=== PATIENT | male | born 1970 | race Caucasian/White ===

== ENCOUNTER 2019-02-20 21:20 | Emergency (ER) | payer SELFPAY ==
[~2019-02-20] VITALS: Ht 185 cm; Wt 100.0 kg
[~2019-02-20 21:20] MED LIST: DYAZIDE
[2019-02-20] MEDS ORDERED: diphenhydrAMINE 50 MG/ML INJ (BENADRYL) IVP ONE (21:45)
[2019-02-20] MEDS ORDERED: FAMOTIDINE 20MG/2ML IV (PEPCID) IVP ONE (21:45)
[2019-02-20] MEDS ORDERED: methylPREDNISolone 125 MG (Solu-MEDROL) VIAL IVP ONE (21:45)
[2019-02-20 21:57] LABS: BASOPHILS % (AUTO) 0 % (0-10); EOSINOPHILS # (AUTO) 0.1 10^3/uL (0.0-0.3); EOSINOPHILS % (AUTO) 1 % (0-10); HEMATOCRIT 45 % (40-54); HEMOGLOBIN 15.8 G/DL (13.3-17.7); LYMPHOCYTES # (AUTO) 3.8 X 10^3 (1.0-4.0); LYMPHOCYTES % (AUTO) 44 % (12-44); MEAN CORPUSCULAR HEMOGLOBIN 30 PG (25-34); MEAN CORPUSCULAR HGB CONC 35 G/DL (32-36); MEAN CORPUSCULAR VOLUME 84 FL (80-99); MEAN PLATELET VOLUME 10.5 FL (7.4-10.4); MONOCYTES # (AUTO) 0.6 X 10^3 (0.0-1.0); MONOCYTES % (AUTO) 7 % (0-12); NEUTROPHILS # (AUTO) 4.1 X 10^3 (1.8-7.8); NEUTROPHILS % (AUTO) 48 % (42-75); PLATELET COUNT 202 10^3/uL (130-400); RED CELL DISTRIBUTION WIDTH 12.8 % (10.0-14.5); WHITE BLOOD COUNT 8.6 10^3/uL (4.3-11.0)
[2019-02-20 22:10] LABS: ALANINE AMINOTRANSFERASE 37 U/L (0-55); ALBUMIN 4.5 GM/DL (3.2-4.5); ALKALINE PHOSPHATASE 99 U/L (40-136); BILIRUBIN,TOTAL 0.4 MG/DL (0.1-1.0); BUN/CREATININE RATIO 17; CALCIUM 9.8 MG/DL (8.5-10.1); CARBON DIOXIDE 21 MMOL/L (21-32); CHLORIDE 108 MMOL/L (98-107); CREATININE SERUM 1.06 MG/DL (0.60-1.30); GFR ESTIMATED > 60; GLUCOSE 123 MG/DL (70-105); POTASSIUM 3.9 MMOL/L (3.6-5.0); SODIUM 141 MMOL/L (135-145); TOTAL PROTEIN 8.1 GM/DL (6.4-8.2)
--- NOTE | 2019-02-20 22:30 | ED Integumentary General ---
General Chief Complaint: Allergic Reaction Stated Complaint: RASH Source: patient History of Present Illness Date Seen by Provider: Feb 20, 2019 Time Seen by Provider: 21:33 Initial Comments PT ARRIVES VIA POV FROM HOME PT STATES HE WAS GETTING READY THIS AM, HE BEGAN TO HAVE RASH AND ITCHING IN HIS ARMPITS TOOK BENADRYL AND IT GOT BETTER, THEN LATER THE RASH RETURNED AND NOW IS ALL OVER HIS BODY, TOOK ANOTHER BENADRYL--NO IMPROVEMENT PALMS VERY ITCHY, FACE AND SCALP ARE INVOLVED. TOPS OF FEET, BUT NOT SOLES ARE INVOLVED. NO SWELLING ANYWHERE NO DIFFICULTY SWALLOWING OR BREATHING NO PALPITATIONS OR DIZZINESS NO CHEST PAIN OR SHORTNESS OF BREATH NO HISTORY OF SIMILAR PT DOES NOT TAKE ANY MEDICATIONS OR SUPPLEMENTS PT DENIES ANY NEW FOODS, PRODUCTS, OR EXPOSURES. PT DID GO TO FOOTBALL GAME YESTERDAY BUT ONLY ATE POPCORN AND DRANK BOTTLED WATER. PT STATES HE WAS FINE WHEN HE WENT TO BED, AND ALSO WHEN HE FIRST WOKE UP. DID NOT NOTICE RASH OR HAVE ANY ITCHING UNTIL A LITTLE LATER, HE WAS GETTING READY TO GO TO [place]. PCP: NONE Allergies and Home Medications Allergies Coded Allergies: No Known Drug Allergies (Unverified , 02/20/19) Home Medications Prednisone 20 Mg Tab, 40 MG PO DAILY Prescribed by: JAVIER MENDOZA on 02/20/19 5956 Patient Home Medication List Home Medication List Reviewed: Yes Review of Systems Review of Systems Constitutional: no symptoms reported; No diaphoresis, No dizziness EENTM: no symptoms reported; No mouth swelling, No nose congestion, No throat swelling Respiratory: no symptoms reported; No cough, No short of breath, No stridor, No wheezing Cardiovascular: no symptoms reported; No chest pain, No edema, No palpitations, No syncope Gastrointestinal: no symptoms reported; No nausea, No vomiting Genitourinary: no symptoms reported Musculoskeletal: no symptoms reported Skin: see HPI, pruritus, rash Psychiatric/Neurological: No Symptoms Reported Endocrine: No Symptoms Reported Hematologic/Lymphatic: No Symptoms Reported Past Kntebfv-Ayuhxo-Qgarcm Hx Patient Social History Alcohol Use: Denies Use Recreational Drug Use: No Smoking Status: Never a Smoker 2nd Hand Smoke Exposure: No Recent Foreign Travel: No Contact w/Someone Who Travel: No Recent Infectious Disease Expo: No Recent Hopitalizations: Yes (2006) Seasonal Allergies Seasonal Allergies: Yes Past Medical History Surgeries: Yes (BILATERAL KNEE SCOPES) Orthopedic Respiratory: No Cardiac: No Neurological: No Reproductive Disorders: No Genitourinary: Yes (KINCEY STONES--NO SURGERY/PASSED ON OWN) Kidney Stones Gastrointestinal: No Musculoskeletal: Yes (BILATERAL KNEE SCOPES) Endocrine: No HEENT: No Cancer: No Psychosocial: No Integumentary: No Blood Disorders: No Physical Exam Vital Signs Vital Signs - First Documented 02/20/19 21:38 Temp 36.8 Pulse 101 Resp 22 B/P (MAP) 147/102 (117) Pulse Ox 99 O2 Delivery Room Air Capillary Refill : Less Than 3 Seconds General Appearance: WD/WN, no apparent distress, other (ANXIOUS, TREMULOUOS) HEENT: PERRL/EOMI, normal ENT inspection, other (NO SWELLING TO FACE, LIPS, TONGUE OR ORAL MUCOSA) Neck: normal inspection Cardiovascular: regular rate, rhythm, no edema, no murmur Respiratory: normal breath sounds, no respiratory distress, no accessory muscle use Gastrointestinal: soft Extremities: no pedal edema, normal capillary refill 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 ENTIRE FACE IS ERYTHEMATOUS, BUT NO URTICARIA TO FACE. PALMS, SOLES SPARED, MOST OF SCALP IS SPARED. ) Progress/Results/Core Measures Results/Orders Lab Results Laboratory Tests Test 02/20/19 21:45 Range/Units White Blood Count 8.6 4.3-11.0 10^3/uL Red Blood Count 5.34 4.35-5.85 10^6/uL Hemoglobin 15.8 13.3-17.7 G/DL Hematocrit 45 40-54 % Mean Corpuscular Volume 84 80-99 FL Mean Corpuscular Hemoglobin 30 25-34 PG Mean Corpuscular Hemoglobin Concent 35 32-36 G/DL Red Cell Distribution Width 12.8 10.0-14.5 % Platelet Count 202 130-400 10^3/uL Mean Platelet Volume 10.5 H 7.4-10.4 FL Neutrophils (%) (Auto) 48 42-75 % Lymphocytes (%) (Auto) 44 12-44 % Monocytes (%) (Auto) 7 0-12 % Eosinophils (%) (Auto) 1 0-10 % Basophils (%) (Auto) 0 0-10 % Neutrophils # (Auto) 4.1 1.8-7.8 X 10^3 Lymphocytes # (Auto) 3.8 1.0-4.0 X 10^3 Monocytes # (Auto) 0.6 0.0-1.0 X 10^3 Eosinophils # (Auto) 0.1 0.0-0.3 10^3/uL Basophils # (Auto) 0.0 0.0-0.1 10^3/uL Sodium Level 141 135-145 MMOL/L Potassium Level 3.9 3.6-5.0 MMOL/L Chloride Level 108 H 98-107 MMOL/L Carbon Dioxide Level 21 21-32 MMOL/L Anion Gap 12 5-14 MMOL/L Blood Urea Nitrogen 18 7-18 MG/DL Creatinine 1.06 0.60-1.30 MG/DL Estimat Glomerular Filtration Rate > 60 BUN/Creatinine Ratio 17 Glucose Level 123 H 70-105 MG/DL Calcium Level 9.8 8.5-10.1 MG/DL Corrected Calcium 9.4 8.5-10.1 MG/DL Total Bilirubin 0.4 0.1-1.0 MG/DL Aspartate Amino Transf (AST/SGOT) 29 5-34 U/L Alanine Aminotransferase (ALT/SGPT) 37 0-55 U/L Alkaline Phosphatase 99 40-136 U/L Total Protein 8.1 6.4-8.2 GM/DL Albumin 4.5 3.2-4.5 GM/DL My Orders Orders - JAVIER MENDOZA DO Diphenhydramine Injection (Benadryl Inje (02/20/19 21:45) Famotidine Injection (Pepcid Injection) (02/20/19 21:45) Methylprednisolone Sod Succ (Solu-Medrol (02/20/19 21:45) Ed Iv/Invasive Line Start (02/20/19 21:52) Monitor-Rhythm Ecg Trace Only (02/20/19 21:52) Cbc With Automated Diff (02/20/19 21:52) Comprehensive Metabolic Panel (02/20/19 21:52) Medications Given in ED Current Medications Medications Dose Ordered Sig/Tarah Route Start Time Stop Time Status Last Admin Dose Admin Diphenhydramine HCl 50 mg ONCE ONCE IVP 02/20/19 21:45 10/6/19 21:46 DC 02/20/19 21:49 50 MG Famotidine 40 mg ONCE ONCE IVP 02/20/19 21:45 02/20/19 21:46 DC 02/20/19 21:49 40 MG Methylprednisolone Sodium Succinate 125 mg ONCE ONCE IVP 02/20/19 21:45 02/20/19 21:46 DC 02/20/19 21:49 125 MG Vital Signs/I&O 02/20/19 02/20/19 21:38 23:29 Temp 36.8 Pulse 101 80 Resp 22 18 B/P (MAP) 147/102 (117) 132/87 Pulse Ox 99 97 O2 Delivery Room Air Room Air Blood Pressure Mean: 117 Progress Progress Note : Progress Note GIVEN BENADRYL, PEPCID, SOLU-MEDROL WITH SIGNIFICANT IMPROVEMENT Departure Impression Primary Impression: ALLERGIC REACTION OF UNKNOWN ETIOLOGY Disposition: HOME, SELF-CARE Condition: Improved Departure-Patient Inst. Referrals: NO,LOCAL PHYSICIAN (PCP/Family) Primary Care Physician Patient Instructions: Nickolas (DAVI) Add. Discharge Instructions: LOTS OF FLUIDS NO NEW FOODS, DRINKS,. MEDICATIONS, ETC. TAKE BENADRYL 50 MG EVERY 4 HOURS NEEDED TAKE OCT PEPCID 40 MG TWICE A DAY NEEDED FOLLOW UP WITH DR OF CHOICE TOMORROW IF NO BETTER, RETURN TO ER IF WORSE All discharge instructions reviewed with patient and/or family. Voiced understanding. Scripts Prednisone (Prednisone) 20 Mg Tab 40 MG PO DAILY, #6 TAB Prov: JAVIER MENDOZA DO 02/20/19 JAVIER MENDOZA DO Feb 20, 2019 22:30
[2019-02-20] MEDS ORDERED: PRD20T PO (23:17)
[2019-02-20 23:29] VITALS: BP 132/87
== END 2019-02-20 23:31 | disposition home or self-care (01) ==
LOC: EDUNIT# 21:20 → ER 21:22
DX: T78.40XA Allergy, unspecified, initial encounter (principal); Z87.442 Personal history of urinary calculi
CPT/HCPCS: 36415; 80053; 85025; 93041

== ENCOUNTER 2020-06-04 02:43 | Day surgery (SDC) | payer SELFPAY ==
[~2020-06-04] VITALS: Ht 185 cm; Wt 111.4 kg
[2020-06-04] VITALS (12 sets, daily range): BP systolic 120–160; BP diastolic 73–99
[~2020-06-04 02:43] MED LIST changes: +PRD20T PO
[2020-06-04] MEDS ORDERED: fentaNYL INJECTION 100 MCG/2 ML AMP IVP STA ×2 (03:05→04:48)
[2020-06-04] MEDS ORDERED: LACTATED RINGERS 1,000 ML IV STA (03:05)
[2020-06-04] MEDS ORDERED: FAMOTIDINE 20MG/2ML IV (PEPCID) IV STA (03:05)
[2020-06-04 03:11] LABS: BASOPHILS % (AUTO) 1 % (0-10); EOSINOPHILS # (AUTO) 0.2 10^3/uL (0.0-0.3); EOSINOPHILS % (AUTO) 4 % (0-10); HEMATOCRIT 47 % (40-54); LYMPHOCYTES # (AUTO) 2.8 10^3/uL (1.0-4.0); LYMPHOCYTES % (AUTO) 48 % (12-44); MEAN CORPUSCULAR HEMOGLOBIN 29 pg (25-34); MEAN CORPUSCULAR HGB CONC 34 g/dL (32-36); MEAN CORPUSCULAR VOLUME 85 fL (80-99); MEAN PLATELET VOLUME 10.5 fL (9.0-12.2); MONOCYTES # (AUTO) 0.4 10^3/uL (0.0-1.0); MONOCYTES % (AUTO) 7 % (0-12); NEUTROPHILS # (AUTO) 2.3 10^3/uL (1.8-7.8); NEUTROPHILS % (AUTO) 40 % (42-75); PLATELET COUNT 168 10^3/uL (130-400); WHITE BLOOD COUNT 5.7 10^3/uL (4.3-11.0)
[2020-06-04 03:14] LABS: ALBUMIN 4.2 GM/DL (3.2-4.5)
[2020-06-04 03:15] LABS: CHLORIDE 109 MMOL/L (98-107); POTASSIUM 4.3 MMOL/L (3.6-5.0); SODIUM 140 MMOL/L (135-145)
[2020-06-04] MEDS ORDERED: ONDANSETRON 4 MG/2 ML (SDV) Z0FRAN IVP ONE ×2 (03:15→05:30)
[2020-06-04 03:16] LABS: CALCIUM 8.9 MG/DL (8.5-10.1)
[2020-06-04 03:17] LABS: GLUCOSE 115 MG/DL (70-105); TOTAL PROTEIN 7.2 GM/DL (6.4-8.2)
[2020-06-04 03:18] LABS: CARBON DIOXIDE 21 MMOL/L (21-32)
[2020-06-04 03:19] LABS: BILIRUBIN,TOTAL 0.4 MG/DL (0.1-1.0)
[2020-06-04 03:20] LABS: ALKALINE PHOSPHATASE 70 U/L (40-136)
[2020-06-04 03:21] LABS: CREATININE SERUM 0.99 MG/DL (0.60-1.30); GFR ESTIMATED > 60
[2020-06-04 03:22] LABS: BUN/CREATININE RATIO 16
[2020-06-04 03:23] LABS: MAGNESIUM 2.1 MG/DL (1.6-2.4)
[2020-06-04 03:24] LABS: ALANINE AMINOTRANSFERASE 54 U/L (0-55); LIPASE 80 U/L (8-78)
[2020-06-04] MEDS ORDERED: KETOROLAC 30 MG/ML VIAL IVP STA (03:29)
--- NOTE | 2020-06-04 03:38 | ED Abdominal Pain ---
General Chief Complaint: Abdominal/GI Problems Stated Complaint: UPPER RIGHT ABD PAIN Nursing Triage Note: TO ED VIA POV AND AMBULATORY TO ROOM 6 WITH C/O RUQ ABD PAIN THAT WOKE HIM FROM SLEEP AT 0200. PAIN HAS BEEN ONGOING FOR 2 WEEKS AND WAS WORKED UP AT [facility] WITH ULTRASOUND, LABS, BUT STATES THEY DIDN'T FIND CULPRIT. GIVEN PANTOPRAZOLE AND HAS BEEN TAKING TYLENOL AND MOTRIN, NONE SINCE MIDNIGHT. DENIES N/V/D, DENIES PROBLEMS WITH URINATION. HAS BEEN TAKING STOOL SOFTENERS WITH LAST BM YESTERDAY MORNING. DENIES INJURY. PAIN IS WORSE AND SHARP WHEN BENDS OVER. Sepsis Screen: No Definite Risk Source of Information: Patient (KELSEY VILLATORO) History of Present Illness Date Seen by Provider: Jun 04, 2020 Time Seen by Provider: 03:00 Initial Comments Pt come to ED with chief complaint of right abdominal pain radiating around the right flank that started about a month ago for which he was seen at [facility]. He states they did an ultrasound of his Gallbladder that was normal and did some lab work with a urine sample that was also clear. He states that the pain is a constant dull pain that is made worse intermittently with certain movements and bending to the side. He states that the pain has been getting worse and was enough to wake him tonight. He states he has had kidney stones in the past and this pain is not similar. He was given some stomach medication with a probiotic at [facility] that did not help the pain. He states he has noticed increased fullness recently along his right clavicle denying any recent or past injury to the clavicle. He has taken some Tylenol every 4 hours that did not help the pain. He denies any diarrhea, constipation, nausea or vomiting. (KELSEY VILLATORO) Timing/Duration: Other (1 month) Severity/Quality: Moderate, Aching, Sharp Location: RUQ Radiation: Back Modifying Factors: Worsens With Eating Associated Symptoms: No Chest Pain, No Fever/Chills; Fatigue; No Nausea/Vomiting, No Shortness of Air; Swelling/Mass in Abdomen; No Weakness (JORDAN SEXTON MD) Allergies and Home Medications Allergies Coded Allergies: allopurinol (Verified Allergy, Unknown, 06/04/20) Home Medications Acetaminophen 325 Mg Tablet, 650 MG PO Q6H PRN for PAIN-MILD (1-4), (Reported) TAKES 2 (325MG) TABLETS Hydrocodone/Acetaminophen 1 Each Tablet, 1 TAB PO Q6H Prescribed by: PATRICA GONSALES on 06/04/20 1404 Ibuprofen 200 Mg Tablet, 600 MG PO Q6H PRN for PAIN-MILD (1-4), (Reported) TAKES 3 (200MG) TABLETS Lactobacillus Acidophilus 1 Each Capsule, 1 EACH PO DAILY, (Reported) Multivit-Min/Folic/Vit K/Lycop 1 Each Tablet, 1 EACH PO DAILY, (Reported) Pantoprazole Sodium 40 Mg Tablet.dr, 40 MG PO DAILY, (Reported) Patient Home Medication List Home Medication List Reviewed: Yes (JORDAN SEXTON MD) Review of Systems Review of Systems Constitutional: No chills, No fever EENTM: No Blurred Vision Respiratory: Denies Cough, Denies Shortness of Air Cardiovascular: Denies Chest Pain, Denies Syncope Gastrointestinal: Abdominal Pain; Denies Constipated, Denies Diarrhea, Denies Nausea, Denies Vomiting Genitourinary: Denies Burning; Flank Pain; Denies Hematuria (does report prior episodes, none currently) Musculoskeletal: No back pain; muscle cramps (Calf ); No muscle weakness Skin: No dryness, No rash Psychiatric/Neurological: Denies Anxiety, Denies Headache, Denies Numbness; Tingling (bilateral hands) (KELSEY VILLATORO) All Other Systems Reviewed Negative Unless Noted: Yes (JORDAN SEXTON MD) Past Brzopqb-Cwiewo-Bffsgd Hx Past Med/Social Hx: Reviewed Nursing Past Med/Soc Hx (JORDAN SEXTON MD) Patient Social History Alcohol Use: Denies Use Smoking Status: Never a Smoker 2nd Hand Smoke Exposure: No Recent Infectious Disease Expo: No Recent Hopitalizations: Yes (2006) (KELSEY VILLATORO) Seasonal Allergies Seasonal Allergies: Yes (KELSEY VILLATORO) Past Medical History Surgeries: Yes (BILATERAL KNEE SCOPES) Orthopedic Respiratory: No Cardiac: No Neurological: No Reproductive Disorders: No Genitourinary: Yes (KINCEY STONES--NO SURGERY/PASSED ON OWN) Kidney Stones Gastrointestinal: No Musculoskeletal: Yes (BILATERAL KNEE SCOPES) Endocrine: No HEENT: No Cancer: No Psychosocial: No Integumentary: No Blood Disorders: No (KELSEY VILLATORO) Family Medical History Reviewed Nursing Family Hx (JORDAN SEXTNO MD) No Pertinent Family Hx (JORDAN SEXTON MD) Physical Exam Vital Signs Vital Signs - First Documented 06/04/20 02:49 Temp 35.6 Pulse 83 Resp 20 B/P (MAP) 163/99 (120) O2 Delivery Room Air (JORDAN SEXTON MD) Vital Signs Capillary Refill : Less Than 3 Seconds (KELSEY VILLATORO) Height/Weight/BMI Height: '" Weight: lbs. oz. kg; 30.00 BMI Method: General Appearance: moderate distress HEENT: PERRL/EOMI, pharynx normal Neck: non-tender, full range of motion, supple, other (Increased fullness with mutiple soft masses along superoir right clavicle) Respiratory: chest non-tender, lungs clear, normal breath sounds, no respiratory distress, no accessory muscle use Cardiovascular: normal peripheral pulses, regular rate, rhythm, no edema, no murmur Gastrointestinal: normal bowel sounds, soft, tenderness (RUQ, positve Holton ) Extremities: normal range of motion, non-tender, no pedal edema, no calf tenderness Back: no CVA tenderness, no vertebral tenderness Neurologic/Psychiatric: no motor/sensory deficits, alert, normal mood/affect, oriented x 3 Skin: normal color, warm/dry (KELSEY VILLATORO) General Appearance: WD/WN Respiratory: lungs clear, normal breath sounds Cardiovascular: regular rate, rhythm, no murmur Gastrointestinal: soft, tenderness (RUQ, positve Holton ) Back: no CVA tenderness, no vertebral tenderness Neurologic/Psychiatric: alert Skin: normal color, warm/dry (JORDAN SEXTON MD) Progress/Results/Core Measures Results/Orders Lab Results Laboratory Tests Test 06/04/20 02:55 06/04/20 04:35 Range/Units White Blood Count 5.7 4.3-11.0 10^3/uL Red Blood Count 5.55 H 4.30-5.52 10^6/uL Hemoglobin 16.0 13.3-17.7 g/dL Hematocrit 47 40-54 % Mean Corpuscular Volume 85 80-99 fL Mean Corpuscular Hemoglobin 29 25-34 pg Mean Corpuscular Hemoglobin Concent 34 32-36 g/dL Red Cell Distribution Width 12.3 10.0-14.5 % Platelet Count 168 130-400 10^3/uL Mean Platelet Volume 10.5 9.0-12.2 fL Immature Granulocyte % (Auto) 0 % Neutrophils (%) (Auto) 40 L 42-75 % Lymphocytes (%) (Auto) 48 H 12-44 % Monocytes (%) (Auto) 7 0-12 % Eosinophils (%) (Auto) 4 0-10 % Basophils (%) (Auto) 1 0-10 % Neutrophils # (Auto) 2.3 1.8-7.8 10^3/uL Lymphocytes # (Auto) 2.8 1.0-4.0 10^3/uL Monocytes # (Auto) 0.4 0.0-1.0 10^3/uL Eosinophils # (Auto) 0.2 0.0-0.3 10^3/uL Basophils # (Auto) 0.0 0.0-0.1 10^3/uL Immature Granulocyte # (Auto) 0.0 0.0-0.1 10^3/uL Neutrophils % (Manual) 43 % Lymphocytes % (Manual) 45 % Monocytes % (Manual) 5 % Eosinophils % (Manual) 4 % Basophils % (Manual) 1 % Band Neutrophils % Atypical Lymphocytes 2 % Toxic Granulation 1+ Hypochromasia MODERATE Basophilic Stippling SLIGHT Anisocytosis SLIGHT Microcytosis SLIGHT Sodium Level 140 135-145 MMOL/L Potassium Level 4.3 3.6-5.0 MMOL/L Chloride Level 109 H 98-107 MMOL/L Carbon Dioxide Level 21 21-32 MMOL/L Anion Gap 10 5-14 MMOL/L Blood Urea Nitrogen 16 7-18 MG/DL Creatinine 0.99 0.60-1.30 MG/DL Estimat Glomerular Filtration Rate > 60 BUN/Creatinine Ratio 16 Glucose Level 115 H 70-105 MG/DL Calcium Level 8.9 8.5-10.1 MG/DL Corrected Calcium 8.7 8.5-10.1 MG/DL Magnesium Level 2.1 1.6-2.4 MG/DL Total Bilirubin 0.4 0.1-1.0 MG/DL Aspartate Amino Transf (AST/SGOT) 34 5-34 U/L Alanine Aminotransferase (ALT/SGPT) 54 0-55 U/L Alkaline Phosphatase 70 40-136 U/L C-Reactive Protein High Sensitivity 0.10 0.00-0.50 MG/DL Total Protein 7.2 6.4-8.2 GM/DL Albumin 4.2 3.2-4.5 GM/DL Lipase 80 H 8-78 U/L Urine Color YELLOW Urine Clarity CLEAR Urine pH 6.0 5-9 Urine Specific Irving 1.010 L 1.016-1.022 Urine Protein NEGATIVE NEGATIVE Urine Glucose (UA) NEGATIVE NEGATIVE Urine Ketones NEGATIVE NEGATIVE Urine Nitrite NEGATIVE NEGATIVE Urine Bilirubin NEGATIVE NEGATIVE Urine Urobilinogen 0.2 < = 1.0 MG/DL Urine Leukocyte Esterase NEGATIVE NEGATIVE Urine RBC (Auto) NEGATIVE NEGATIVE Urine RBC NONE /HPF Urine WBC NONE /HPF Urine Squamous Epithelial Cells NONE /HPF Urine Crystals NONE /LPF Urine Bacteria NEGATIVE /HPF Urine Casts NONE /LPF Urine Mucus NEGATIVE /LPF Urine Culture Indicated NO (JORDAN SEXTON MD) My Orders Orders - JORDAN SEXTON MD Ondansetron Injection (Zofran Injectio (06/04/20 03:15) Lactated Ringers (Lr 1000 Ml Iv Solution (06/04/20 03:05) Famotidine Injection (Pepcid Injection) (06/04/20 03:05) Ed Iv/Invasive Line Start (06/04/20 03:05) Cbc With Automated Diff (06/04/20 03:05) Comprehensive Metabolic Panel (06/04/20 03:05) Hs C Reactive Protein (06/04/20 03:05) Lipase (06/04/20 03:05) Magnesium (06/04/20 03:05) Fentanyl Injection (Sublimaze Injection (06/04/20 03:05) Manual Differential (06/04/20 02:55) Ketorolac Injection (Toradol Injection) (06/04/20 03:29) Ct Chest/Abdomen/Pelvis W (06/04/20 03:29) Ua Culture If Indicated (06/04/20 03:35) Iohexol Injection (Omnipaque 350 Mg/Ml 1 (06/04/20 04:30) Received Contrast (Hold Metformin- Contr (06/04/20 04:30) Sodium Chloride Flush (Catheter Flush Sy (06/04/20 04:30) Ns (Ivpb) (Sodium Chloride 0.9% Ivpb Bag (06/04/20 04:30) Fentanyl Injection (Sublimaze Injection (06/04/20 04:48) Ondansetron Injection (Zofran Injectio (06/04/20 05:30) (JORDAN SEXTON MD) Medications Given in ED (JORDAN SEXTON MD) Vital Signs/I&O 06/04/20 02:49 Temp 35.6 Pulse 83 Resp 20 B/P (MAP) 163/99 (120) O2 Delivery Room Air (JORDAN SEXTON MD) Blood Pressure Mean: 120 Progress Progress Note : Progress Note RUQ Abominal pain- consider possible gallbladder disease, kidney stone, gastric vs duodenal ulcers, pancreatitis -Gallbladder, negative ultrasound at [facility] 1 month ago per patient -Ordered CBC, CMP, Lipase, CRP, UA, -CT Abdomen/pelvis: -Pain control with Fentanyl 50mcg and Toradol 30mg -1L LR given - Right Supraclavicular fullness -Possible lymphadenopathy -CBC with differential, CT Chest ordered -CBC showed normal white count, hgb, slightly elevated RBC -CT Chest: negative for masses (KELSEY VILLATORO) Progress Note : Progress Note Patient seen and evaluated with medical student. I was present during the entire history and physical exam and agree with above except as indicated. I have directed the plan of care. Patient is here with right upper quadrant abdominal pain that radiates to his back. Also notes right periclavicular fullness. Denies shortness of breath. Has had pain intermittently over the last month but certainly worse tonight. Ate chili for dinner at about 5:30 PM. Woke up at about 2 AM with severe pain. Denies blood in urine or stools currently. Physical exam as above. Plan as above. Monitor patient. 0500: Patient had worsening pain so repeat fentanyl [address] scan concerning for gallstone with slight elevation of lipase but normal total bili and white count. Due to persistent pain, I will contact the surgeon on-call, Dr. Gonsales. 0531: I did discuss the case with Dr. Gonsales. Patient is very uncomfortable with persistent pain and would be amiable to surgery if available. Dr. Gonsales will admit for cholecystectomy. I did discuss this with the patient and he agrees. Admit, observation status same-day surgery for cholecystectomy. Patient agrees with plan. I did update the patient's estephania Calle regarding current situation per patient request. She would like to be available at time of postop if possible. This will be passed on to the nursing. (JORDAN SEXTON MD) Diagnostic Imaging Diagonstic Imaging: CT Plain Films/CT/US/NM/MRI: chest, abdomen, pelvis Comments Negative for parenchymal consolidation, pneumothorax or pleural fluid collections. No acute finding. Abdomen and pelvis shows a small nonobstructive left intrarenal calculus. Mild splenomegaly and diffuse hepatic steatosis. No acute findings involving the solid abdominal organs. Cholelithiasis is present. Negative for biliary ductal dilation. Negative for lower GI tract obstruction, pneumatosis or focal bowel wall thickening. Normal appendix. Mild indeterminate bladder wall thickening, correlate for cystitis. Reviewed: Reviewed Night [facility] Study, Reviewed by Me (JORDAN SEXTON MD) Departure Communication (Admissions) Time/Spoke to Admitting Phy: 05:31 (JORDAN SEXTON MD) Impression Primary Impression: Cholelithiasis Qualified Codes: K80.20 - Calculus of gallbladder without cholecystitis without obstruction Additional Impression: Intractable right upper quadrant abdominal pain Disposition: ADMITTED INPATIENT Condition: Stable Admissions Decision to Admit Reason: Admit from ER (General) Decision to Admit/Date: Jun 04, 2020 Time/Decision to Admit Time: 05:31 (JORDAN SEXTON MD) Departure-Patient Inst. Referrals: NO,LOCAL PHYSICIAN (PCP/Family) Primary Care Physician Scripts Hydrocodone/Acetaminophen (Hydrocodone/Acetaminophen 5 MG/325 MG TAB) 1 Each Tablet 1 TAB PO Q6H for Pain MDD 10 TABS for 7 Days, #14 TAB Prov: PATRICA GONSALES DO 06/04/[address] [facility] Jun 04, 2020 03:38 JORDAN SEXTON MD Jun 04, 2020 05:06
[2020-06-04 03:44] LABS: ANISOCYTOSIS SLIGHT; ATYPICAL LYMPHOCYTES 2 %; BASOPHILS % (MANUAL) 1 %; EOSINOPHILS % (MANUAL) 4 %; HYPOCHROMASIA MODERATE; LYMPHOCYTES % (MANUAL) 45 %; MICROCYTOSIS SLIGHT; MONOCYTES % (MANUAL) 5 %; NEUTROPHILS % (MANUAL) 43 %; TOXIC GRANULATION/VACUOLAZATIO 1+
[2020-06-04] MEDS ORDERED: NS 100 ML (IVPB) BAG IV ONE (04:30)
[2020-06-04] MEDS ORDERED: HOLD METFORMIN - RECEIVED CONTRAST 20 ML VIAL IV SCH (04:30)
[2020-06-04] MEDS ORDERED: CATHETER FLUSH 10 ML SYR IV PRN (04:30)
[2020-06-04] MEDS ORDERED: IOHEXOL 350 MG/ML 100 ML (OMNIPAQUE 350) VIAL IV ONE (04:30)
[2020-06-04 04:45] LABS: BILIRUBIN,URINE NEGATIVE (NEGATIVE); CLARITY,URINE CLEAR; COLOR,URINE YELLOW; GLUCOSE, URINE (UA) NEGATIVE (NEGATIVE); KETONES,URINE NEGATIVE (NEGATIVE); LEUKOCYTE ESTERASE ,URINE NEGATIVE (NEGATIVE); NITRITE,URINE NEGATIVE (NEGATIVE); PROTEIN,URINE NEGATIVE (NEGATIVE)
[2020-06-04 04:58] LABS: BACTERIA,URINE NEGATIVE /HPF
--- NOTE | 2020-06-04 05:35 | NUR ---
DR. SEXTNO UPDATED S/O ARMANDO ABOUT CURRENT CONDITION AND PLAN TO ADMIT TO MEDICAL UNIT FOR LAP CHOLECYSTECTOMY LATER THIS AFTERNOON.
--- NOTE | 2020-06-04 06:59 | NUR ---
ASSUMED CARE OF PT.
--- NOTE | 2020-06-04 07:28 | NUR ---
UP TO THE BATHROOM.
--- NOTE | 2020-06-04 07:42 | Diagnostic Imaging Report ---
PROCEDURE: CT chest, abdomen, and pelvis with contrast. TECHNIQUE: Multiple contiguous axial images were obtained through the chest, abdomen, and pelvis after the administration of intravenous contrast. Auto Exposure Controls were utilized during the CT exam to meet ALARA standards for radiation dose reduction. INDICATION: Right upper quadrant pain off and on for the last 6 weeks. Prior history of kidney stones. EXAMINATION: CT chest, abdomen, and pelvis from 06/04/2020 FINDINGS: CHEST: The lungs are unremarkable. No pericardial or pleural effusions appreciated. Mediastinal structures unremarkable. IMPRESSION: Negative chest CT abdomen and pelvis: There is scattered diverticular disease without evidence for diverticulitis. Appendix appears normal. There is diffuse fatty infiltration throughout the liver. There is a punctate stone in the gallbladder which is otherwise normal. Spleen and pancreas as well as the adrenal glands unremarkable. Kidneys demonstrate nonobstructive stones, no hydronephrosis. Osseous structures unremarkable. Nonspecific but calcified nodularity adjacent to the urinary bladder likely a benign process. Questionable mild wall thickening of the urinary bladder likely due to incomplete distention; clinical exclusion of cystitis recommended. IMPRESSION: 1. Mild diverticular disease without evidence for diverticulitis. 2. Nonobstructive renal stones 3. Likely stone in the gallbladder without surrounding changes of inflammatory process. Other incidental findings as noted above. Pertinent findings agree with the preliminary report. Dictated by: Dictated on workstation # [id number]
--- NOTE | 2020-06-04 07:54 | NUR ---
NOTIFIED WE WERE STILL WAIITING ON A BED TO OPEN UP. PT DENIES NEEDS AT THIS TIME.
[2020-06-04] MEDS ORDERED: NS IV 1000 ML 1,000 ML IV SCH (08:45)
--- NOTE | 2020-06-04 08:49 | History & Physical-Surgical ---
ASHWIN LE,MED STUDENT 06/04/20 0849: History of Present Illness History of Present Illness Reason for visit/HPI Pt is a 49 year old male who presented to the ED this morning complaining of RUQ abdominal pain radiating to the back. He states he has been having dull R sided abdominal pain for the past 6 weeks. He had an GB ultrasound and labs done about 6 weeks ago, and states they did not show anything. He states his pain became sharp and was a 10/10 this morning promting him to come to the ER. He states he has tried taking ibuprofen and tyelenol at home but neither helped. He states eating makes his pain worse. Pain is currently 5/6 and located in the RUQ under his ribs. He denies fever, chills, chest pain, SOB. States he did have some nausea and vomiting after recieving pain medications in the ER. Date of Admission Date Seen by a Provider: Jun 04, 2020 Time Seen by a Provider: 06:50 I consulted on this patient on 06/04/20 08:44 Attending Physician Patrica Gonsales DO Admitting Physician No,Local Physician Consult Allergies and Home Medications Allergies Coded Allergies: allopurinol (Verified Allergy, Unknown, 06/04/20) Home Medications Prednisone 20 Mg Tab, 40 MG PO DAILY Prescribed by: JAVIER MENDOZA on 02/20/19 3008 Past Mnddajw-Zgwark-Hqhphf Hx Patient Social History Smoking Status: Never a Smoker 2nd Hand Smoke Exposure: No Recent Hopitalizations: Yes (2006) Alcohol Use?: No Seasonal Allergies Seasonal Allergies: Yes Surgeries History of Surgeries: Yes (BILATERAL KNEE SCOPES) Surgeries: Orthopedic Respiratory History of Respiratory Disorde: No Cardiovascular History of Cardiac Disorders: No Neurological History of Neurological Disord: No Reproductive System Hx Reproductive Disorders: No Genitourinary History of Genitourinary Disor: Yes (KINCEY STONES--NO SURGERY/PASSED ON OWN) Genitourinary Disorders: Kidney Stones Gastrointestinal History of Gastrointestinal Di: No Musculoskeletal History of Musculoskeletal Dis: Yes (BILATERAL KNEE SCOPES) Endocrine History of Endocrine Disorders: No HEENT History of HEENT Disorders: No Cancer History of Cancer: No Psychosocial History of Psychiatric Problem: No Integumentary History of Skin or Integumenta: No Blood Transfusions History of Blood Disorders: No Family Medical History Significant Family History: Heart Disease (father), Hypertension (father) Review of Systems Constitutional: No chills, No dizziness, No fever, No weakness; weight gain (5 pounds) EENTM: No blurred vision, No vision loss, No nose congestion, No throat pain Respiratory: No cough, No dyspnea on exertion, No short of breath Cardiovascular: No chest pain, No edema, No palpitations Gastrointestinal: abdominal pain (RUQ radiating to back), loss of appetite, nausea, vomiting Genitourinary: No dysuria; hematuria (one episode 2 months ago) Musculoskeletal: No joint pain, No muscle pain; muscle cramps (B calfs a few days ago); No muscle weakness Skin: No change in color, No lesions, No rash Psychiatric/Neurological: Denies Headache, Denies Numbness, Denies Tingling, Denies Weakness Heme: denies easy bleeding or bruising Physical Exam Vital Signs Vital Signs - First Documented 06/04/20 06/04/20 02:49 08:15 Temp 35.6 Pulse 83 Resp 20 B/P (MAP) 163/99 (120) Pulse Ox 97 O2 Delivery Room Air Capillary Refill : Less Than 3 Seconds Height, Weight, BMI Height: '" Weight: lbs. oz. kg; 30.00 BMI Method: General Appearance: No Apparent Distress, WD/WN Eyes: Right Eye EOMI HEENT: Moist Mucous Membranes; No Scleral Icterus (L), No Scleral Icterus (R) Neck: Non Tender, Supple; No Lymphadenopathy (L), No Lymphadenopathy (R) Respiratory: Lungs Clear, No Accessory Muscle Use, No Respiratory Distress Cardiovascular: Regular Rate, Rhythm, No Murmur Gastrointestinal: Normal Bowel Sounds, Soft; No Distended; Tenderness (RUQ ) Extremity: Normal Capillary Refill, Normal Range of Motion, No Calf Tenderness Neurologic/Psychiatric: Alert, Oriented x3, No Motor/Sensory Deficits, Normal Mood/Affect Skin: Normal Color, Warm/Dry Lymphatic: No Adenopathy (cervical, supraclavicular, axillary) Data Review Labs Laboratory Tests 06/04/20 02:55: White Blood Count 5.7, Red Blood Count 5.55H, Hemoglobin 16.0, Hematocrit 47, Mean Corpuscular Volume 85, Mean Corpuscular Hemoglobin 29, Mean Corpuscular Hemoglobin Concent 34, Red Cell Distribution Width 12.3, Platelet Count 168, Mean Platelet Volume 10.5, Immature Granulocyte % (Auto) 0, Neutrophils (%) (Auto) 40L, Lymphocytes (%) (Auto) 48H, Monocytes (%) (Auto) 7, Eosinophils (%) (Auto) 4, Basophils (%) (Auto) 1, Neutrophils # (Auto) 2.3, Lymphocytes # (Auto) 2.8, Monocytes # (Auto) 0.4, Eosinophils # (Auto) 0.2, Basophils # (Auto) 0.0, Immature Granulocyte # (Auto) 0.0, Neutrophils % (Manual) 43, Lymphocytes % (Manual) 45, Monocytes % (Manual) 5, Eosinophils % (Manual) 4, Basophils % (Manual) 1, Band Neutrophils , Atypical Lymphocytes 2, Toxic Granulation 1+, Hypochromasia MODERATE, Basophilic Stippling SLIGHT, Anisocytosis SLIGHT, Microcytosis SLIGHT, Sodium Level 140, Potassium Level 4.3, Chloride Level 109H, Carbon Dioxide Level 21, Anion Gap 10, Blood Urea Nitrogen 16, Creatinine 0.99, Estimat Glomerular Filtration Rate > 60, BUN/Creatinine Ratio 16, Glucose Level 115H, Calcium Level 8.9, Corrected Calcium 8.7, Magnesium Level 2.1, Total Bilirubin 0.4, Aspartate Amino Transf (AST/SGOT) 34, Alanine Aminotransferase (ALT/SGPT) 54, Alkaline Phosphatase 70, C-Reactive Protein High Sensitivity 0.10, Total Protein 7.2, Albumin 4.2, Lipase 80H 06/04/20 04:35: Urine Color YELLOW, Urine Clarity CLEAR, Urine pH 6.0, Urine Specific [place] 1.010L, Urine Protein NEGATIVE, Urine Glucose (UA) NEGATIVE, Urine Ketones NEGATIVE, Urine Nitrite NEGATIVE, Urine Bilirubin NEGATIVE, Urine Urobilinogen 0.2, Urine Leukocyte Esterase NEGATIVE, Urine RBC (Auto) NEGATIVE, Urine RBC NONE, Urine WBC NONE, Urine Squamous Epithelial Cells NONE, Urine Crystals NONE, Urine Bacteria NEGATIVE, Urine Casts NONE, Urine Mucus NEGATIVE, Urine Culture Indicated NO Assessment/Plan Assessment/Plan Assessment/Plan Cholelithiasis with RUQ abdominal pain Umbilical Hernia Nonobstructing kidney stones, seen on CT Plan for laparoscopic cholecystectomy today PATRICA GONSALES DO 06/04/20 1059: History of Present Illness History of Present Illness Reason for visit/HPI Surgery asked to consult regarding RUQ pain, suspected Cholecystitis. When I spoke to pt this am, he states this is the worst the pain has been, describes it as sharp; usually it is dull. He states certain foods make it worse, but "I never paid attention to which ones". Time Seen by a Provider: 09:51 Allergies and Home Medications Allergies Coded Allergies: allopurinol (Verified Allergy, Unknown, 06/04/20) Home Medications Prednisone 20 Mg Tab, 40 MG PO DAILY Prescribed by: JAVIER MENDOZA on 02/20/19 7919 Patient Home Medication List Home Medication List Reviewed: Yes Past Mcckkjt-Jztenq-Karnex Hx Patient Social History Smoking Status: Never a Smoker Surgeries History of Surgeries: Yes Surgeries: Orthopedic Respiratory History of Respiratory Disorde: No Cardiovascular History of Cardiac Disorders: No Family Medical History Significant Family History: Heart Disease (father), Hypertension (father) Review of Systems Constitutional: No chills, No dizziness, No fever, No weakness EENTM: No blurred vision, No vision loss, No nose congestion Respiratory: No cough, No dyspnea on exertion, No short of breath Cardiovascular: No chest pain, No edema, No palpitations Gastrointestinal: abdominal pain (RUQ radiating to back), loss of appetite, nausea, vomiting Genitourinary: No dysuria; hematuria (one episode 2 months ago) Musculoskeletal: No muscle pain; muscle cramps (B calfs a few days ago); No muscle weakness Skin: No change in color, No lesions, No rash Psychiatric/Neurological: Denies Anxiety, Denies Depressed, Denies Headache, Denies Numbness, Denies Tingling, Denies Weakness Physical Exam General Appearance: WD/WN, Mild Distress Eyes: Bilateral Eye PERRL, Bilateral Eye EOMI HEENT: Moist Mucous Membranes; No Pale Conjunctivae (L), No Pale Conjunctivae (R), No Scleral Icterus (L), No Scleral Icterus (R) Neck: Non Tender, Supple; No Thyromegaly Respiratory: Lungs Clear, Normal Breath Sounds, No Accessory Muscle Use, No Respiratory Distress Cardiovascular: Regular Rate, Rhythm Gastrointestinal: No Organomegaly, Soft; No Distended; Guarding (voluntary), Tenderness (RUQ ) Rectal: Deferred Extremity: Normal Capillary Refill, Normal Range of Motion, No Calf Tenderness, No Pedal Edema Neurologic/Psychiatric: Alert, Oriented x3, No Motor/Sensory Deficits, Normal Mood/Affect Skin: Normal Color, Warm/Dry Lymphatic: No Adenopathy (cervical, supraclavicular, axillary) Data Review Radiology Date of Exam:06/04/20 CT CHEST/ABDOMEN/PELVIS W PROCEDURE: CT chest, abdomen, and pelvis with contrast. TECHNIQUE: Multiple contiguous axial images were obtained through the chest, abdomen, and pelvis after the administration of intravenous contrast. Auto Exposure Controls were utilized during the CT exam to meet ALARA standards for radiation dose reduction. INDICATION: Right upper quadrant pain off and on for the last 6 weeks. Prior history of kidney stones. EXAMINATION: CT chest, abdomen, and pelvis from 06/04/2020 FINDINGS: CHEST: The lungs are unremarkable. No pericardial or pleural effusions appreciated. Mediastinal structures unremarkable. IMPRESSION: Negative chest CT abdomen and pelvis: There is scattered diverticular disease without evidence for diverticulitis. Appendix appears normal. There is diffuse fatty infiltration throughout the liver. There is a punctate stone in the gallbladder which is otherwise normal. Spleen and pancreas as well as the adrenal glands unremarkable. Kidneys demonstrate nonobstructive stones, no hydronephrosis. Osseous structures unremarkable. Nonspecific but calcified nodularity adjacent to the urinary bladder likely a benign process. Questionable mild wall thickening of the urinary bladder likely due to incomplete distention; clinical exclusion of cystitis recommended. IMPRESSION: 1. Mild diverticular disease without evidence for diverticulitis. 2. Nonobstructive renal stones 3. Likely stone in the gallbladder without surrounding changes of inflammatory process. Other incidental findings as noted above. Pertinent findings agree with the preliminary report. Dictated by: Dictated on workstation # [id number] Dict: 06/04/20 0725 Trans: 06/04/20 0857 [facility] [id number] Interpreted by: LIDIA VILLANUEVA MD Electronically signed by: LIDIA VILLANUEVA MD 06/04/20 0857 Assessment/Plan Assessment/Plan Admission Diagonsis Acute cholecystitis with cholelithiasis Admission Status: Observation Assessment/Plan Acute cholecystitis with cholelithiasis Pt has a small stone in GB seen on CT and has symptoms classic for cholecystitis. I think pt will benefit from having his GB removed; however, I did tell him that it is not 100% all his symptoms will go away. We discussed the procedure in detail, going over risks and complications not limited to pain, bleeding, infection, scar, damage to bowel or bile duct and need for further procedure. He is NPO, on IV fluids, with pain meds and we will get a consent for Laparoscopic Cholecystectomy with possible cholangiogram possible open. All questions answered to his satisfaction. Supervisory-Addendum Brief Verification & Attestation Participated in pt care: history, MDM, physical Personally performed: exam, history, MDM Care discussed with: Medical Student Procedures: n/a Verification and Attestation of Medical Student E/M Service A medical student performed and documented this service. I then reviewed and verified all information documented by the medical student and made modifications to such information, when appropriate. I personally performed a physical exam, medical decision making and then discussed any differences between the notes and made revisions as necessary to create one note. Patrica Gonsales , 06/04/20 , 11:00 ASHWIN LE,MED STUDENT Jun 04, 2020 08:49 PATRICA GONSALES DO Jun 04, 2020 10:59
[2020-06-04] MEDS ORDERED: ONDANSETRON 4 MG/2 ML (SDV) Z0FRAN IVP PRN ×2 (09:00→13:45)
--- NOTE | 2020-06-04 09:00 | NUR ---
KYM MIKE admitted to room 405-1, with an admitting diagnosis of abdominal pain, on 05/29/20 from [place] ED via wheelchair, accompanied by staff.KYM MIKE introduced to surroundings, call light, bed controls, phone, TV, temperature control, lights, meal times, smoking policy, visitor policy, side rail policy, bathrooms and showers. Patient Rights given to patient in the handbook. KYM MIKE verbalizes understanding that [facility] is not responsible for the loss or damage to any personal effects or valuables that are kept in the patients posession during their hospitalization.
[2020-06-04] MEDS: fentaNYL INJECTION 100 MCG/2 ML AMP IVP PRN ×2 (09:40→11:15)
[2020-06-04] MEDS ORDERED: fentaNYL INJECTION 100 MCG/2 ML AMP ONE (10:55)
[2020-06-04] MEDS ORDERED: MIDAZOLAM 2 MG/2 ML (VERSED) VIAL ONE (10:55)
[2020-06-04] MEDS ORDERED: PANT40TA2 PO (11:07)
[2020-06-04] MEDS ORDERED: IBUP-2473 PO (11:07)
[2020-06-04] MEDS ORDERED: MULT-1102 PO (11:07)
[2020-06-04] MEDS ORDERED: LACT1CAP62 PO (11:07)
[2020-06-04] MEDS ORDERED: ACET325T38 PO (11:07)
--- NOTE | 2020-06-04 11:09 | NUR ---
I SPOKE WITH THE PATIENT AND CALLED [facility] [place] TO COMPLETE THIS MED REC. FILL DATE FROM [facility]: 03/07/20 PROTONIX 40MG #DS OTC: TYLENOL IBUPROFEN MEN'S MULTI-VITAMIN PROBIOTIC
[2020-06-04] MEDS ORDERED: IOPAMIDOL 61% 30 ML (ISOVUE 300) VIAL ONE (11:30)
[2020-06-04] MEDS ORDERED: LIDOCAINE/EPI 1%-1:100,000 (XYLOCAINE) 50 ML ONE (11:30)
[2020-06-04] MEDS: LACTATED RINGERS 1,000 ML IV PRN ×2 (12:28→13:56)
[2020-06-04] MEDS ORDERED: ceFAZolin 2 GM IV Premixed 50 ML ONE (12:30)
[2020-06-04] MEDS ORDERED: proPOfol 200 MG/20 ML (DIPRIVAN) VIAL IV ONE (13:11)
[2020-06-04] MEDS ORDERED: LIDOCAINE PF 2% 5 ML (XYLOCAINE) VIAL ONE (13:12)
[2020-06-04] MEDS ORDERED: ROCURONIUM 10 MG/ML 5 ML SYRINGE IV ONE (13:12)
[2020-06-04] MEDS ORDERED: ONDANSETRON 4 MG/2 ML (SDV) Z0FRAN ONE (13:12)
[2020-06-04] MEDS ORDERED: SEVOFLURANE (ULTANE) 15 ML INHAL SOLN ONE ×4 (13:12→13:17)
[2020-06-04] MEDS ORDERED: GLYCOPYRROLATE 0.2 MG/ML (ROBINUL) 2 ML VIAL ONE (13:13)
[2020-06-04] MEDS ORDERED: NEOSTIGMINE 3 MG/3 ML VIAL ONE (13:13)
[2020-06-04] MEDS ORDERED: morphine INJ 10 MG/ML 1ML (SYR OR VIAL) ONE (13:36)
[2020-06-04] MEDS ORDERED: fentaNYL INJECTION 100 MCG/2 ML AMP IVP ONE (13:45)
[2020-06-04] MEDS ORDERED: morphine INJ 10 MG/ML 1ML (SYR OR VIAL) IVP ONE (13:45)
[2020-06-04] MEDS ORDERED: MEPERIDINE (DEMEROL) INJ 50 MG/ML IVP ONE (13:45)
--- NOTE | 2020-06-04 13:59 | Anesthesia-General Post-Op ---
General Patient Condition Mental Status/LOC: Same as Preop Cardiovascular: Satisfactory Nausea/Vomiting: Absent Respiratory: Satisfactory Pain: Controlled Complications: Absent Post Op Complications Complications None Follow Up Care/Instructions Patient Instructions None needed. Anesthesia/Patient Condition Patient Condition Patient is doing well, no complaints, stable vital signs, no apparent adverse anesthesia problems. No complications reported per nursing. IMANI ROWELL CRNA Jun 04, 2020 13:59
--- NOTE | 2020-06-04 14:02 | Progress Note-Post Operative ---
Post-Operative Progess Note Surgeon (s)/Cyber Systems Operations Specialist (s) Surgeon PATRICA GONSALES DO Cyber Systems Operations Specialist: Dali Pre-Operative Diagnosis Acute Cholecystitis/Cholelithiasis Post-Operative Diagnosis same Procedure & Operative Findings Date of Procedure 06/04/20 Procedure Performed/Findings PROCEDURE: Laparoscopic cholecystectomy with intraoperative cholangiogram. COMPLICATIONS: None. PROCEDURE: The patient was taken to the operating suite and was prepped and draped in sterile fashion. A surgical pause was performed. Just superior to the umbilicus, a 12 mm incision was made. Dissection was taken down to the fascia, which was then scored and grasped with a Angie and the abdomen was then entered. A 0 Vicryl suture was placed in a [id number] fashion and a Beck trocar was placed and secured. Pneumoperitoneum was achieved. A 5mm trochar place in the subxyphoid and 2 in the right upper quadrant. The gallbladder appeared to be mildly distended but did not appear to have a lot of inflammation. It was then grasped and elevated. The cystic duct, and cystic artery were then dissected out. Clip was placed on the distal portion of the cystic duct which was then partially transected. An arrow catheter was inserted into the duct. The cholangiogram was then performed. No filing defects and contrast made its way into the duodenum. Catheter removed. Clips were placed on proximal portion of the cystic duct and then the duct was then transected. Clips were placed along the proximal and distal portion of the cystic artery which was then transected. Hook cautery was used to dissect the gallbladder from the gallbladder fossa achieving hemostasis. The gallbladder was placed in an Endobag and removed through the 12 mm trocar site. The abdomen was then reinspected. Copious amounts of irrigation were used to irrigate the abdomen and there were no signs of active bleeding. Hemostasis had been achieved. The 12 mm fascial defect was then closed with 0 Vicryl suture that had been placed in a [id number] fashion. The abdomen was then desufflated, the trocars were removed. The abdomen was then washed and dried. The skin was then closed using 4-0 Monocryl in a subcuticular fashion. The abdomen was washed and dried and Skin Affix was place over incisions. Patient tolerated the procedure well without any complications and was taken to the recovery room in stable condition. Dr. Mcnally assisted on this case helping to make incisions, close incisions, identify anatomy and hold anatomy out of the way. Anesthesia Type GET Estimated Blood Loss Estimated blood loss (mL): scant Specimens/Packing Specimens Removed GB and contents PATRICA GONSALES DO Jun 04, 2020 14:02
[2020-06-04] MEDS ORDERED: HYDR-4226 PO (14:04)
--- NOTE | 2020-06-04 14:05 | Discharge Inst-Surgical ---
Discharge Inst-Surgical Depart Medication/Instructions New, Converted or Re-Newed RX: RX Given to Pt/Family Patient Instructions Follow up Appt: Make appointment for 1 week. [phone] Instructions: No lifting greater than 20 pounds. No strenuous activity. May shower in 24 hours, no tub bath or soaking. Use incentive spirometer at home as directed. No Smoking Skin/Wound Care: May remove bandages in am. You need to leave the Dermabond on incision it will fall off on it's own. Symptoms to Report: Appetite Changes, Extremity Discoloration, Numbness/Tingling, Swelling Increased, Bleeding Excessive, Eyesight Changes, Pain Increased, Urine Color Change, Constipation(Persistent), Fever over 101 degree F, Pain/Pressure in chest, Urinating Difficulty, Cough Up/Vomit Blood, Heart Beat Irreg/Pounding, Pain/Pressure in jaw, Cramps in feet or legs, Lightheadedness, Pain/Pressure in shoulder, Diarrhea(Persistent), Memory Changes Suddenly, Questions/Concerns, Weight gain consecutive days, Dizziness/Fainting, Nausea/Vomiting, Shortness of Breath, Weight gain over 2 pounds If questions or concerns contact your physician Or seek help at emergency department. Activity Activity as Tolerated: Yes Activity Instructions: Avoid Stress to Incision Driving Instructions: No Driving/Refer to Diet Discharge Diet: Avoid Fatty Foods, Low Fat/Low Cholesterol Diet After 24 Hours: Clear Liquid if Nauseous If Any Problems/Questions/Issu: Contact Your Physician, Go to Emergency Room Skin/Wound Care Infection Signs and Symptoms: Increased Redness, Foul Odor of Wound, Increased Drainage, Skin Itchy or Has a Rash, Increased Swelling, Temperature Above 101 F Bathing Instructions: Shower Stitches/[place]/Dermabond Dis: Dermabond Ice Pack: Ice On and Off Site PATRICA GONSALES DO Jun 04, 2020 14:05
--- NOTE | 2020-06-04 14:37 | NUR ---
Patient arrived back into room at this time. Report received from surgical aide Tatum at this time. Patient awake, alert, and oriented. Will continue to monitor.
--- NOTE | 2020-06-04 15:26 | NUR ---
Spoke with and updated patients spouse Kiara at this time.
--- NOTE | 2020-06-04 16:59 | NUR ---
KYM MIKE demonstrates understanding of discharge instructions and accurately returns instructions upon questioning. Copy of Post-Discharge Instructions and Medication Discharge Instructions given to patient. KYM MIKE is able to manage continuing needs after discharge. Patients belongings returned to patient. Skin dry and intact; no breakdown noted. Patient discharged from [facility] on 06/04/20 at 1700. KYM MIKE left floor via wheelchair, accompanied by staff.
--- NOTE | 2020-06-04 17:28 | Diagnostic Imaging Report ---
INDICATION: Cholecystectomy Operative cholangiogram performed in routine fashion with injection via the cystic duct stump inserted. A total of 40 images were obtained. The cystic duct is somewhat elongated and inserts low in the common duct. The common duct is nondilated. Visualized intrahepatic radicles are nondilated. The distal most portion of the common duct is not seen due to overlying instrument. Contrast does appear to pass to the duodenum. IMPRESSION: Limited study but unremarkable operative cholangiogram. Dictated by: Dictated on workstation # [id number]
== END 2020-06-04 17:01 ==
LOC: EDUNIT# 02:43 → ER 02:45 → SDC 08:03 → 4TH 08:05 → SDC 17:01
PROVIDERS: ATTEND Surgery
DX: K80.10 Calculus of gallbladder with chronic cholecystitis without obstruction (principal); Z88.8 Allergy status to other drugs, medicaments and biological substances; Z20.828 Contact with and (suspected) exposure to other viral communicable diseases
CPT/HCPCS: 47563; 71260; 74177; 76000; 80053; 81000; 83690; 83735; 85007; 85027; 86141; 87081; 99284; U0002; 36415; 87635; 88304

== ENCOUNTER → 2021-04-28 | Outpatient (CLI) | payer BC ==
[~2021-04-28] MED LIST changes: +ACET325T38 PO; +CATHETER FLUSH 10 ML SYR IV PRN; +HOLD METFORMIN - RECEIVED CONTRAST 20 ML VIAL IV SCH; +HYDR-4226 PO; +IBUP-2473 PO; +IOHEXOL 350 MG/ML 100 ML (OMNIPAQUE 350) VIAL IV ONE; +LACT1CAP62 PO; +MULT-1102 PO; +NS 100 ML (IVPB) BAG IV ONE; +PANT40TA2 PO
[2021-04-28 12:22] LABS: BASOPHILS % (AUTO) 1 % (0-10); EOSINOPHILS # (AUTO) 0.2 10^3/uL (0.0-0.3); EOSINOPHILS % (AUTO) 3 % (0-10); HEMATOCRIT 48 % (40-54); HEMOGLOBIN 16.5 g/dL (13.3-17.7); LYMPHOCYTES # (AUTO) 1.9 10^3/uL (1.0-4.0); LYMPHOCYTES % (AUTO) 30 % (12-44); MEAN CORPUSCULAR HEMOGLOBIN 29 pg (25-34); MEAN CORPUSCULAR HGB CONC 34 g/dL (32-36); MEAN CORPUSCULAR VOLUME 84 fL (80-99); MEAN PLATELET VOLUME 10.3 fL (9.0-12.2); MONOCYTES # (AUTO) 0.4 10^3/uL (0.0-1.0); MONOCYTES % (AUTO) 7 % (0-12); NEUTROPHILS # (AUTO) 3.8 10^3/uL (1.8-7.8); NEUTROPHILS % (AUTO) 60 % (42-75); PLATELET COUNT 194 10^3/uL (130-400); WHITE BLOOD COUNT 6.3 10^3/uL (4.3-11.0)
[2021-04-28 12:42] LABS: ALBUMIN 4.4 GM/DL (3.2-4.5); BILIRUBIN,TOTAL 0.7 MG/DL (0.1-1.0); CALCIUM 9.4 MG/DL (8.5-10.1); CREATININE SERUM 1.02 MG/DL (0.60-1.30); POTASSIUM 4.1 MMOL/L (3.6-5.0); TOTAL PROTEIN 7.5 GM/DL (6.4-8.2)
--- NOTE | 2021-04-28 14:02 | Diagnostic Imaging Report ---
PROCEDURE: CT chest and abdomen with contrast. TECHNIQUE: Multiple contiguous axial images were obtained through the chest and abdomen after the administration of intravenous contrast. Auto Exposure Controls were utilized during the CT exam to meet ALARA standards for radiation dose reduction. INDICATION: Right chest and abdominal pain. COMPARISON: CT chest, abdomen and pelvis 06/04/2020. FINDINGS: The lungs are clear. No pleural effusion or pneumothorax. Normal caliber thoracic aorta and central pulmonary arteries. Normal heart size. No pericardial effusion. No mediastinal, hilar or axillary lymphadenopathy. Cholecystectomy. The liver, pancreas, spleen, adrenals, right kidney and visualized ureters are negative. Nonobstructing calyceal tip renal stones in the left kidney measuring 0.7 cm. Normal appendix. No free intraperitoneal air/fluid, lymphadenopathy or evidence of bowel obstruction in the visualized abdomen. No acute osseous findings. IMPRESSION: 1. No acute CT findings in the chest or abdomen. 2. Cholecystectomy. 3. Nonobstructing calyceal tip renal stone in the left kidney measuring 0.7 cm. Dictated by: Dictated on workstation # [id number]
== END ==
LOC: RAD 12:08
PROVIDERS: ATTEND Nurse Practitioner Community Health
DX: N20.0 Calculus of kidney (principal); Z90.49 Acquired absence of other specified parts of digestive tract
CPT/HCPCS: 36415; 71260; 74160; 80053; 85025; 86141

== ENCOUNTER 2021-08-12 16:16 | Emergency (ER) | payer BC ==
[~2021-08-12] VITALS: Ht 185.4 cm; Wt 104.3 kg
[~2021-08-12 16:16] MED LIST changes: -CATHETER FLUSH 10 ML SYR IV PRN; -HOLD METFORMIN - RECEIVED CONTRAST 20 ML VIAL IV SCH; -IOHEXOL 350 MG/ML 100 ML (OMNIPAQUE 350) VIAL IV ONE; -NS 100 ML (IVPB) BAG IV ONE
[2021-08-12] MEDS ORDERED: morphine INJ 10 MG/ML 1ML (SYR OR VIAL) IVP STA ×2 (16:48→17:53)
--- NOTE | 2021-08-12 16:58 | ED GU-Male ---
General Chief Complaint: - Reproductive Stated Complaint: BACK/GROIN PAIN Source: patient Exam Limitations: no limitations (PRANAV KLEIN STUDENT) History of Present Illness Date Seen by Provider: Aug 12, 2021 Time Seen by Provider: 16:38 Initial Comments Patient is a 51 year old male with history of kidney stones who presents to the ED with complaints of left flank pain radiating to his left lower quadrant and groin/scrotum. Patient reports the symptoms started at 0300 this am while he was in bed. Describes the pain as stabbing and is intermittent. Is associated with nausea and vomiting x 2. Took ibuprofen and tylenol without relief of symptoms today. Currently is in quite a lot of pain, rates it a 10/10. Denies chest pain, SOB, headache, fevers, chills, and diarrhea. Reports inability to void since 0500 this am. Nothing seems to make the pain better. Jarring motions seem to worsen the pain. Timing/Duration: this morning, getting worse, intermittent Severity/Quality: severe, sharp, stabbing Location: left flank Radiation: LLQ, groin (left side), scrotal (left side) Activities at Onset: sleep Prior Genitourinary Problems: similar symptoms (history of kidney stone 15 years ago) Modifying Factors: Improves With Coughing, Improves With Movement, Improves With Palpation Associated Symptoms: No fever/chills; nausea/vomiting (PRANAV KLEIN STUDENT) Allergies and Home Medications Allergies Coded Allergies: allopurinol (Verified Allergy, Unknown, 06/04/20) Patient Home Medication List Home Medication List Reviewed: Yes (GEORGE ROME MD) Acetaminophen (Tylenol) 325 Mg Tablet, 650 MG PO Q6H PRN for PAIN-MILD (1-4), (Reported) Entered as Reported by: JAMEY KNOWLES on 06/04/20 1107 Hydrocodone/Acetaminophen (Hydrocodone/Acetaminophen 5 MG/325 MG TAB) 1 Each Tablet, 1 TAB PO Q6H Prescribed by: PATRICA GONSALES on 06/04/20 1404 Hydrocodone/Acetaminophen (Hydrocodone-Acetamin 7.5-325) 1 Each Tablet, 1 EACH PO Q6H PRN for PAIN-MODERATE (5-7) Prescribed by: GEORGE ROME on 08/12/21 1802 Ibuprofen (Ibuprofen) 200 Mg Tablet, 600 MG PO Q6H PRN for PAIN-MILD (1-4), (Reported) Entered as Reported by: JAMEY KNOWLES on 06/04/201106 Lactobacillus Acidophilus (Probiotic) 1 Each Capsule, 1 EACH PO DAILY, (Reported) Entered as Reported by: JAMEY KNOWLES on 06/04/201106 Multivit-Min/Folic/Vit K/Lycop (Men's Multivitamin Tablet) 1 Each Tablet, 1 EACH PO DAILY, (Reported) Entered as Reported by: JAMEY KNOWLES on 06/04/201106 Ondansetron (Ondansetron Odt) 8 Mg Tab.rapdis, 8 MG PO Q8H PRN for nausea Prescribed by: GEORGE ROME on 08/12/211800 Pantoprazole Sodium (Protonix) 40 Mg Tablet.dr, 40 MG PO DAILY, (Reported) Entered as Reported by: JAMEY KNOWLES on 06/04/201106 Tamsulosin HCl (Flomax) 0.4 Mg Cap, 0.4 MG PO HS Prescribed by: GEORGE ROME on 08/12/211800 Review of Systems Review of Systems Constitutional: No chills, No diaphoresis, No fever EENTM: No blurred vision, No double vision Respiratory: no symptoms reported; No cough, No dyspnea on exertion, No short of breath Cardiovascular: no symptoms reported; No chest pain, No edema, No palpitations Gastrointestinal: No constipation, No diarrhea; loss of appetite, nausea, vomiting Genitourinary: flank pain (left sided), other (unable to void today since 0500) Musculoskeletal: no symptoms reported; No back pain, No joint pain, No joint swelling Skin: no symptoms reported; No change in color, No change in hair/nails Psychiatric/Neurological: No Symptoms Reported; Denies Anxiety, Denies Depressed Endocrine: No Symptoms Reported; Denies Excessive Sweating, Denies Flushing Hematologic/Lymphatic: No Symptoms Reported; Denies Easy Bleeding, Denies Easy Bruising (PRANAV KLEIN MED STUDENT) All Other Systemes Reviewed Negative Unless Noted: Yes (PRANAV KLEIN STUDENT) Past Lufgbhu-Radaxj-Owzkzr Hx Patient Social History Tobacco Use?: No Smoking Status: Never a Smoker Smokeless Tobacco Frequency: Never a User Use of E-Cig and/or Vaping dev: No Use of E-Cig and/or Vaping William: Never a User Substance use?: No Alcohol Use?: No (BRENDEN [employer] STUDENT) Immunizations Up To Date Tetanus Booster (TDap): Unknown (BRENDEN KLE[employer]care[employer] STUDENT) Seasonal Allergies Seasonal Allergies: Yes (BRENDEN KLEIN[employer]care[employer] STUDENT) Past Medical History Surgeries: Yes Gallbladder, Orthopedic Respiratory: No Cardiac: No Neurological: No Reproductive Disorders: No Genitourinary: Yes (KINCEY STONES--NO SURGERY/PASSED ON OWN) Kidney Stones Gastrointestinal: No Musculoskeletal: Yes (BILATERAL KNEE SCOPES) Arthritis Endocrine: No HEENT: No Loss of Vision: Denies Hearing Impairment: Denies Cancer: No Psychosocial: No Integumentary: No Blood Disorders: No (BRENDEN [employer]LE[employer] STUDENT) Family Medical History Heart Disease, Hypertension (BRENDEN [employer]LE[employer] STUDENT) Physical Exam Vital Signs Vital Signs - First Documented 08/12/21 16:34 Temp 36.6 Pulse 98 Resp 22 B/P (MAP) 163/99 (120) Pulse Ox 98 (GEORGE ROME MD) Vital Signs Capillary Refill : (BRENDEN KLE[employer] STUDENT) Height, Weight, BMI Height: '" Weight: lbs. oz. kg; 32.54 BMI Method: General Appearance: WD/WN, mild distress HEENT: PERRL/EOMI, pharynx normal Neck: non-tender, full range of motion Cardiovascular: normal peripheral pulses, no murmur, tachycardia Respiratory: chest non-tender, lungs clear, normal breath sounds, no respiratory distress Gastrointestinal: normal bowel sounds, non tender, soft Rectal: deferred Back: CVA tenderness (L) Extremities: normal range of motion, non-tender, no pedal edema, no calf tenderness, normal capillary refill Neurologic/Psychiatric: no motor/sensory deficits, alert, normal mood/affect, oriented x 3 Skin: normal color, warm/dry Lymphatic: no adenopathy (Head and Neck) (PRANAV KLEIN [employer] STUDENT) Progress/Results/Core Measures Suspected Sepsis SIRS Temperature: Pulse: Respiratory Rate: Blood Pressure / Mean: (BRENDEN [employer]LE[employer] STUDENT) Results/Orders Lab Results Laboratory Tests Test 08/12/21 16:43 08/12/21 17:16 Range/Units Sodium Level 133 L 135-145 MMOL/L Potassium Level 4.0 3.6-5.0 MMOL/L Chloride Level 103 98-107 MMOL/L Carbon Dioxide Level 21 21-32 MMOL/L Anion Gap 9 5-14 MMOL/L Blood Urea Nitrogen 14 7-18 MG/DL Creatinine 1.37 H 0.60-1.30 MG/DL Estimat Glomerular Filtration Rate 63 BUN/Creatinine Ratio 10 Glucose Level 116 H 70-105 MG/DL Calcium Level 8.8 8.5-10.1 MG/DL Urine Color YELLOW Urine Clarity CLEAR Urine pH 6.0 5-9 Urine Specific Taylor 1.025 H 1.016-1.022 Urine Protein NEGATIVE NEGATIVE Urine Glucose (UA) NEGATIVE NEGATIVE Urine Ketones NEGATIVE NEGATIVE Urine Nitrite NEGATIVE NEGATIVE Urine Bilirubin NEGATIVE NEGATIVE Urine Urobilinogen 0.2 < = 1.0 MG/DL Urine Leukocyte Esterase NEGATIVE NEGATIVE Urine RBC (Auto) 1+ H NEGATIVE Urine RBC 0-2 /HPF Urine WBC NONE /HPF Urine Squamous Epithelial Cells RARE /HPF Urine Crystals NONE /LPF Urine Bacteria NEGATIVE /HPF Urine Casts NONE /LPF Urine Mucus NEGATIVE /LPF Urine Culture Indicated NO (GEORGE ROME MD) My Orders Orders - GEORGE ROME MD Ed Iv/Invasive Line Start (08/12/21 16:48) Basic Metabolic Panel (08/12/21 16:48) Abdomen/Kub 1view (08/12/21 16:48) Ct Abd/Pelvis Wo(Kidney Stone) (08/12/21 16:48) Morphine Injection (Morphine Injection (08/12/21 16:48) Tamsulosin Capsule (Flomax Capsule) (08/12/21 18:00) Ondansetron Injection (Zofran Injectio (08/12/21 17:00) Ketorolac Injection (Toradol Injection) (08/12/21 17:00) Morphine Injection (Morphine Injection (08/12/21 17:53) (GEORGE ROME MD) Medications Given in ED (GEORGE ROME MD) Vital Signs/I&O 08/12/21 08/12/21 16:34 18:20 Temp 36.6 Pulse 98 100 Resp 22 16 B/P (MAP) 163/99 (120) 146/84 Pulse Ox 98 97 (GEORGE ROME MD) Vital Signs/I&O Capillary Refill : (PRANAV KLEIN MED STUDENT) Progress Note : Time: 17:56 Progress Note Patient seen and examined by me, 51-year-old with acute onset of left flank pain at 3 AM. History of kidney stones approximately 15 years ago, has previously followed up with . No recent fevers, chills, dysuria, urgency or frequency. Patient has had a difficult time straining to urinate all day today as well as to have a bowel movement. Patient rating his pain at presentation at a "10 out of 10". Denies recent black or bloody stools. No trauma. Has had nausea and vomiting twice today. Patient did take some Tylenol and ibuprofen today without relief of symptoms. Work-up today reveals a 7 mm left-sided kidney stone with a slight increase in creatinine noted on chemistry. No evidence of infection on urinalysis. The stone is visualized on KUB. Patient is treated with Toradol, Flomax and morphine. Had significant relief of pain currently it is "dull". He is comfortable being discharged. I recommended that he follow-up first thing in the morning with Dr. Marmolejo. Return precautions have been discussed. He verbalized understanding. All questions are sought and answered. (GEORGE ROME MD) Diagnostic Imaging Diagonstic Imaging: Xray Plain Films/CT/US/NM/MRI: abdomen Comments [facility] [place], [place] NAME: KYM MIKE [facility] REC#: [id number] PT STATUS: DEP ER : 1970 PHYSICIAN: GEORGE ROME MD ADMIT DATE: 08/12/21/ER Signed Date of Exam:08/12/21 ABDOMEN/KUB 1VIEW EXAMINATION: Abdomen, one view. HISTORY: Left flank pain. COMPARISON: None available. FINDINGS: A 5 mm calcification projects over the expected location of the proximal left ureter. No dilated bowel. No free air. No other stones. Cholecystectomy clips are noted. IMPRESSION: 1. Calcification projecting over the expected location of the proximal left ureter measuring 5 mm. Dictated by: Dictated on workstation # [id number] Dict: 08/12/211729 Trans: 08/12/211944 [id number] Interpreted by: ROEL ONEAL MD Electronically signed by: ROEL ONEAL MD 08/12/211944 Diagonstic Imaging: CT Plain Films/CT/US/NM/MRI: abdomen Comments [facility] [place] NAME: KYM MIKE [facility] REC#: [id number] PT STATUS: REG ER : 1970 PHYSICIAN: GEORGE ROME MD ADMIT DATE: 08/12/21/ER Signed Date of Exam:08/12/21 CT ABD/PELVIS WO(KIDNEY STONE) PROCEDURE: CT urinary tract, rule out kidney stone. TECHNIQUE: Multiple contiguous axial images were obtained through the abdomen and pelvis without the use of intravenous contrast. Auto Exposure Controls were utilized during the CT exam to meet ALARA standards for radiation dose reduction. INDICATION: Left-sided flank pain. COMPARISON: 04/28/2021. FINDINGS: The heart is unremarkable. The lung bases are clear. Calculus is seen in the proximal left ureter within the UPJ measuring 0.7 cm. There is moderate left-sided hydroureteronephrosis with perinephric fat stranding present. No hydronephrosis on the right. The urinary bladder is decompressed. There is hepatic steatosis. No focal hepatic lesions are seen. The gallbladder is surgically absent. The spleen, pancreas, and adrenal glands have a normal appearance. There is no pathologically enlarged mesenteric or retroperitoneal adenopathy. The bowel loops are nondilated. The appendix is visualized in the right lower quadrant and has a normal appearance. There is no free fluid or free air. No acute osseous abnormalities. There is calcified aortic and iliac atherosclerotic plaque without aneurysm. There is no free air, loculated collection, or adenopathy in the pelvis. IMPRESSION: 1. Obstructing calculus in the left UPJ measuring 0.7 cm with moderate left-sided hydroureteronephrosis. Perinephric fat stranding is present on the left. 2. Hepatic steatosis. Dictated by: Dictated on workstation # [id number] Dict: 08/12/211729 Trans: 08/12/211737 [id number] Interpreted by: JENNY CHERY DO Electronically signed by: JENNY CHERY DO 08/12/211737 (GEORGE ROME MD) Departure Impression Primary Impression: Left ureteral calculus Disposition: HOME, SELF-CARE Condition: Improved Departure-Patient Inst. Decision time for Depature: 17:59 (GEORGE ROME MD) Referrals: NO,LOCAL PHYSICIAN (PCP) Primary Care Physician SVITLANA AMAYA MD Patient Instructions: Kidney Stones in Adults Add. Discharge Instructions: Drink lots of fluids to stay well-hydrated. Take the Flomax tablet nightly for the next 2 weeks. Strain your urine every time you urinate. Pain medication, hydrocodone every 6 hours with food as needed for pain. This medication is habit forming/addictive. Do not drive and take this medication Zofran, 8 mg every 8 hours for nausea as needed. Please call Dr. Amaya's office first thing in the morning for a follow-up appointment as your stone is quite large and may require surgical intervention or lithotripsy Return to the emergency department for any worsening pain especially with inability to urinate, fever or other emergent, concerning symptoms. Scripts Ondansetron (Ondansetron Odt) 8 Mg Tab.rapdis 8 MG PO Q8H PRN for nausea, #20 TAB Prov: GEORGE ROME MD 08/12/21 Hydrocodone/Acetaminophen (Hydrocodone-Acetamin 7.5-325) 1 Each Tablet 1 EACH PO Q6H PRN for PAIN-MODERATE (5-7), #20 TAB Prov: GEORGE ROME MD 08/12/21 Tamsulosin HCl (Flomax) 0.4 Mg Cap 0.4 MG PO HS, #14 CAP Prov: GEORGE ROME MD 08/12/21 Verification and Attestation of Medical Student E/M Service A medical student performed and documented this service in my presence. I reviewed and verified all information documented by the medical student and made modifications to such information, when appropriate. I personally performed the physical exam and medical decision making. George Rome, Aug 12, 2021,18:02 (GEORGE ROME MD) Copy Copies To 1: SVITLANA AMAYA MD, [employer] MED STUDENT Aug 12, 2021 16:58 GEORGE ROME MD Aug 12, 2021 18:02
[2021-08-12] MEDS ORDERED: ONDANSETRON 4 MG/2 ML (SDV) Z0FRAN IVP ONE (17:00)
[2021-08-12] MEDS ORDERED: KETOROLAC 30 MG/ML VIAL IVP ONE (17:00)
[2021-08-12 17:07] LABS: CALCIUM 8.8 MG/DL (8.5-10.1); CREATININE SERUM 1.37 MG/DL (0.60-1.30)
[2021-08-12 17:21] LABS: BILIRUBIN,URINE NEGATIVE (NEGATIVE); CLARITY,URINE CLEAR; COLOR,URINE YELLOW; GLUCOSE, URINE (UA) NEGATIVE (NEGATIVE); KETONES,URINE NEGATIVE (NEGATIVE); LEUKOCYTE ESTERASE ,URINE NEGATIVE (NEGATIVE); NITRITE,URINE NEGATIVE (NEGATIVE); PROTEIN,URINE NEGATIVE (NEGATIVE)
[2021-08-12 17:30] LABS: BACTERIA,URINE NEGATIVE /HPF; RBC,URINE 0-2 /HPF; SQUAMOUS EPITHELIAL CELL,UR RARE /HPF
--- NOTE | 2021-08-12 17:32 | Diagnostic Imaging Report ---
EXAMINATION: Abdomen, one view. HISTORY: Left flank pain. COMPARISON: None available. FINDINGS: A 5 mm calcification projects over the expected location of the proximal left ureter. No dilated bowel. No free air. No other stones. Cholecystectomy clips are noted. IMPRESSION: 1. Calcification projecting over the expected location of the proximal left ureter measuring 5 mm. Dictated by: Dictated on workstation # [id number]
--- NOTE | 2021-08-12 17:35 | Diagnostic Imaging Report ---
PROCEDURE: CT urinary tract, rule out kidney stone. TECHNIQUE: Multiple contiguous axial images were obtained through the abdomen and pelvis without the use of intravenous contrast. Auto Exposure Controls were utilized during the CT exam to meet ALARA standards for radiation dose reduction. INDICATION: Left-sided flank pain. COMPARISON: 04/28/2021. FINDINGS: The heart is unremarkable. The lung bases are clear. Calculus is seen in the proximal left ureter within the UPJ measuring 0.7 cm. There is moderate left-sided hydroureteronephrosis with perinephric fat stranding present. No hydronephrosis on the right. The urinary bladder is decompressed. There is hepatic steatosis. No focal hepatic lesions are seen. The gallbladder is surgically absent. The spleen, pancreas, and adrenal glands have a normal appearance. There is no pathologically enlarged mesenteric or retroperitoneal adenopathy. The bowel loops are nondilated. The appendix is visualized in the right lower quadrant and has a normal appearance. There is no free fluid or free air. No acute osseous abnormalities. There is calcified aortic and iliac atherosclerotic plaque without aneurysm. There is no free air, loculated collection, or adenopathy in the pelvis. IMPRESSION: 1. Obstructing calculus in the left UPJ measuring 0.7 cm with moderate left-sided hydroureteronephrosis. Perinephric fat stranding is present on the left. 2. Hepatic steatosis. Dictated by: Dictated on workstation # [id number]
[2021-08-12] MEDS ORDERED: TAMSULOSIN 0.4 MG (FLOMAX) CAP PO SCH (18:00)
[2021-08-12] MEDS ORDERED: ONDA8TAB13 PO (18:01)
[2021-08-12] MEDS ORDERED: HYDR-3817 PO (18:01)
[2021-08-12] MEDS ORDERED: TMSL.4C PO (18:01)
[2021-08-12 18:20] VITALS: BP 146/84
== END 2021-08-12 18:26 | disposition home or self-care (01) ==
LOC: EDUNIT# 16:16 → ER 16:19
DX: N13.2 Hydronephrosis with renal and ureteral calculous obstruction (principal)
CPT/HCPCS: 36415; 74018; 74176; 80048; 81000

== ENCOUNTER → 2021-08-14 | Outpatient (CLI) | payer BC ==
[~2021-08-14] MED LIST changes: +HYDR-3817 PO; +ONDA8TAB13 PO; +TMSL.4C PO
--- NOTE | 2021-08-14 15:22 | Diagnostic Imaging Report ---
Indication: Left-sided urinary tract stones. Time of Exam: 1:05 PM Correlation is made with prior radiograph from 08/12/2021. Previously noted calcific density in the region of the proximal left ureter projects between the left L2 and L3 transverse processes, similar in location to prior. No additional urinary tract calculi are seen. The bowel gas pattern is unremarkable. IMPRESSION: No significant change in location of proximal left ureteric calculus when compared with prior examination 2 days earlier. Dictated by: Dictated on workstation # [id number]
== END ==
LOC: RAD 12:45
PROVIDERS: ATTEND Urology
DX: N20.0 Calculus of kidney (principal)
CPT/HCPCS: 74018

== ENCOUNTER 2021-08-15 05:37 | Outpatient (CLI) | payer BC ==
[~2021-08-15] VITALS: Ht 185.4 cm; Wt 104.5 kg
== END 2021-08-15 15:09 | disposition home or self-care (01) ==
LOC: PREOP 05:37
PROVIDERS: ATTEND Urology
DX: Z01.818 Encounter for other preprocedural examination (principal)

== ENCOUNTER 2021-08-20 08:29 | Day surgery (SDC) | payer BC, OTHER ==
[~2021-08-20] VITALS: Ht 185.4 cm; Wt 104.5 kg
[2021-08-20] VITALS (10 sets, daily range): BP systolic 104–133; BP diastolic 72–90
[2021-08-20] MEDS ORDERED: cefTRIAXone 1 GM PRE-MIX 50 ML IV ONE (08:45)
[2021-08-20] MEDS ORDERED: LACTATED RINGERS 1,000 ML IV PRN (08:45)
--- NOTE | 2021-08-20 09:04 | Progress Note-Pre Operative ---
Pre-Operative Progress Note H&P Reviewed The H&P was reviewed, patient examined and no changes noted. Date Seen by Provider: Aug 20, 2021 Time Seen by Provider: 09:04 Date H&P Reviewed: Aug 20, 2021 Time H&P Reviewed: 09:04 Pre-Operative Diagnosis: LT RENAL STONE SVITLANA CONNORS MD Aug 20, 2021 09:04
--- NOTE | 2021-08-20 09:17 | Diagnostic Imaging Report ---
EXAMINATION: Abdomen 1 view HISTORY: Renal stone COMPARISON: 08/14/2021 FINDINGS: There is an unchanged 5 mm calcification projecting over the lower pole of the left kidney. No dilated bowel or free air. IMPRESSION: 1. Unchanged 5 mm calcification projecting over the lower pole of the left kidney. Dictated by: Dictated on workstation # [id number]
[2021-08-20] MEDS ORDERED: FAMOTIDINE 20MG/2ML IV (PEPCID) IVP ONE (09:45)
[2021-08-20] MEDS ORDERED: ONDANSETRON 4 MG/2 ML (SDV) Z0FRAN IVP ONE (09:45)
[2021-08-20] MEDS ORDERED: ONDANSETRON 4 MG/2 ML (SDV) Z0FRAN ONE ×2 (10:34→12:06)
[2021-08-20] MEDS ORDERED: MIDAZOLAM 2 MG/2 ML (VERSED) VIAL ONE ×2 (10:34→12:07)
[2021-08-20] MEDS ORDERED: fentaNYL INJ 100 MCG/2 ML AMP ONE ×2 (10:34→12:06)
[2021-08-20] MEDS ORDERED: proPOfol 200 MG/20 ML (DIPRIVAN) VIAL IV ONE ×2 (10:34→12:06)
[2021-08-20] MEDS ORDERED: LIDOCAINE PF 2% 5 ML (XYLOCAINE) VIAL ONE ×2 (10:34→12:06)
[2021-08-20] MEDS ORDERED: SEVOFLURANE (ULTANE) 15 ML INHAL SOLN ONE (10:34)
--- NOTE | 2021-08-20 10:50 | Progress Note-Post Operative ---
Post-Operative Progess Note Surgeon (s)/Loading Checker (s) Surgeon SVITLANA CONNORS MD Loading Checker: NONE Pre-Operative Diagnosis LT RENAL STONE Post-Operative Diagnosis SAME Procedure & Operative Findings Date of Procedure 08/20/21 Procedure Performed/Findings LT ESWL Anesthesia Type GENERAL Estimated Blood Loss Estimated blood loss (mL): NONE Specimens/Packing Specimens Removed NONE Packing: NONE SVITLANA CONNORS MD Aug 20, 2021 10:50
--- NOTE | 2021-08-20 10:52 | Discharge Inst-Urology ---
Discharge Inst-Urology Reconcile Patient Problems Problems Reviewed?: Yes Final Diagnosis LT RENAL STONE Patient Instructions/Follow Up Plan/Assessment/Instructions Please make appointment to been seen in office Saturday 09/02, KUB prior to it. KUB on way home Post ESWL instructions Increase oral fluids for 48 hours and then as needed. Diet and Activity as tolerated. If questions or concerns contact your physician Or seek help at emergency department. SVITLANA CONNORS MD Aug 20, 2021 10:52
[2021-08-20] MEDS ORDERED: FUROSEMIDE 40 MG/4 ML INJ (LASIX) ONE (10:54)
[2021-08-20] MEDS ORDERED: KETOROLAC 30 MG/ML VIAL ONE (10:54)
[2021-08-20] MEDS ORDERED: ONDANSETRON 4 MG/2 ML (SDV) Z0FRAN IVP PRN (11:30)
[2021-08-20] MEDS ORDERED: HYDROmorphone 2 MG/ML VIAL (DILAUDID) IV ONE (11:30)
[2021-08-20] MEDS ORDERED: TMSL.4C PO (11:32)
[2021-08-20] MEDS ORDERED: KETO10TA PO (11:32)
[2021-08-20] MEDS ORDERED: NITR-65 PO (11:32)
[2021-08-20] MEDS ORDERED: HYDROcodone/APAP 5 MG/325 MG (LORTAB) TAB ONE (12:30)
[2021-08-20] MEDS ORDERED: HYDROcodone/APAP 5 MG/325 MG (LORTAB) TAB PO ONE (12:30)
--- NOTE | 2021-08-20 13:02 | Anesthesia-General Post-Op ---
General Patient Condition Mental Status/LOC: Same as Preop Cardiovascular: Satisfactory Nausea/Vomiting: Absent Respiratory: Satisfactory Pain: Controlled Complications: Absent Post Op Complications Complications None Follow Up Care/Instructions Patient Instructions None needed. Anesthesia/Patient Condition Patient Condition Patient is doing well, no complaints, stable vital signs, no apparent adverse anesthesia problems. No complications reported per nursing. D/C home per [facility] [place] Criteria: Yes RADHA BLAND CRNA Aug 20, 2021 13:02
--- NOTE | 2021-08-20 13:44 | Diagnostic Imaging Report ---
INDICATION: Kidney stone. COMPARISON: 08/20/2021. FINDINGS: A single view of the abdomen demonstrates an inferior pole kidney stone which has become fragmented. No calcifications are seen in the course of the ureter or bladder. IMPRESSION: Fragmented stone in the inferior pole of the left kidney. Dictated by: Dictated on workstation # [id number]
--- NOTE | 2021-08-20 15:33 | OPERATIVE REPORT ---
DATE OF SERVICE: 08/20/2021 PREOPERATIVE DIAGNOSIS: Left renal stone. POSTOPERATIVE DIAGNOSIS: Left renal stone. OPERATION PERFORMED: Left ESWL. SURGEON: Malcolm Connors MD ANESTHESIA: General. COMPLICATIONS: None. DESCRIPTION OF PROCEDURE: Under satisfactory general anesthesia, the patient in supine position on the ESWL table, the left renal stone was localized. Shocks were delivered at kV of 6, a total of 2500 shocks completely fragmented the stone. The patient received 40 mg of Lasix and 30 mg of Toradol IV at the end of the procedure. He tolerated the procedure and anesthesia well and was sent to recovery room in stable condition. Job ID: [id number] DocumentID: [id number] Dictated Date: 08/20/2021 11:09:37 Tablet Making Machine Operator Date: 08/20/2021 15:32:56 Dictated By: MALCOLM CONNORS MD
== END 2021-08-20 13:25 | disposition home or self-care (01) ==
LOC: SDC 08:29
PROVIDERS: ATTEND Urology
DX: N20.0 Calculus of kidney (principal)
CPT/HCPCS: 74018; 87081

== ENCOUNTER → 2021-09-02 | Outpatient (CLI) | payer OTHER ==
[~2021-09-02] MED LIST changes: +KETO10TA PO; +NITR-65 PO
--- NOTE | 2021-09-02 16:39 | Diagnostic Imaging Report ---
INDICATION: History of left renal calculus. COMPARISON: 08/20/2021. EXAMINATION: KUB. FINDINGS: The left renal calculus is not demonstrated on today's exam. No calculi are seen on the right. There are no calculi along the path of the ureters or within the bladder. The bowel gas pattern is normal. IMPRESSION: No evidence of renal or ureteral calculi demonstrated on this exam. Dictated by: Dictated on workstation # [id number]
== END ==
LOC: RAD 12:50
PROVIDERS: ATTEND Urology
DX: N20.0 Calculus of kidney (principal)
CPT/HCPCS: 74018

== ENCOUNTER 2021-09-04 12:00 | Outpatient (RCR) | payer OTHER | END 2021-09-14 | LOC: LAB 12:00 → EDSTATUS 12:15 | PROVIDERS: ATTEND Urology | DX: N20.1 Calculus of ureter (principal) | CPT/HCPCS: 36415; 82140; 82340; 82507; 82570; 83735; 83945; 83986; 84105; 84133; 84300; 84392; 84560; 88300 ==